=== PATIENT | female | born 1930 | race Caucasian/White ===

== ENCOUNTER 2017-05-05 09:25 | Emergency (ER) | payer MEDICARE, OTHER ==
[2017-05-05 09:38] VITALS: BP 145/70
--- NOTE | 2017-05-05 09:43 | EDM.PDOC ---
ED HPI GENERAL MEDICAL PROBLEM - General Chief Complaint: Cardiovascular Problem Stated Complaint: [facility] Time Seen by Provider: 05/05/17 09:42 - History of Present Illness INITIAL COMMENTS - FREE TEXT/NARRATIVE: 87-year-old female presents emergency room with dizziness not feeling well. This started last night sometime between 10 PM and 2 AM this morning. The patient was able to back to sleep several times but woke up in the dizziness persisted. The patient is been under a lot of stress about a month ago her they were 66 years. Her son is helping the patient she is on some medications that she gets her meds set that the [id number] sets up for her. There have not been any errors or missed or extra doses of medication that anybody can recall. The patient has had some cardiac issues in the past but it's unclear as to what they don't recall any irregular heartbeat currently the patient is on Plavix lovastatin and metoprolol tartrate. The metoprolol heart is somewhat low dose 25 mg half tablet twice daily. The patient was brought in by EMS their initial EKG had some baseline artifact that was fairly consistent with atrial fibrillation rate in the 40s. When she arrived here on the monitor sure what she was in atrial fibrillation her pulse rate was usually in the 40s occasionally would drop into the upper 30s occasionally up to 50s with to get an EKG on her rate was 56 and looks very much like atrial fibrillation careful examination does not reveal any discernible P waves however I was somewhat suspicious initially of AV gisella dysfunction or high-grade heart block. The patient has not had any chest pain or breathing difficulties with this. medications: At this time the patient is taking clopidogrel 75 mg daily. Lovastatin 20 mg at bedtime. Metoprolol tartrate 25 mg one half tablet twice daily mirtazapine 15 mg at bedtime vitamin B 1,000 g tablets daily. Vitamin D 400 international units daily calcium 600 mg 1 twice daily adult Multivite once daily. Tramadol 50 mg every 8 hours as needed for pain apparently she doesn't use this on a regular basis. The patient has been getting her healthcare in [facility] we have had no luck in contacting her clinic and we cannot contact a hospital that might have some information on her - Related Data Allergies Allergy/AdvReac Type Severity Reaction Status Date / Time No Known Allergies Allergy Verified 05/05/17 09:38 Home Meds: Home Meds Calcium Carbonate [Calcium] 600 mg PO DAILY 05/05/17 [History] Cholecalciferol (Vitamin D3) [Vitamin D] 4,000 unit PO DAILY 05/05/17 [History] Clopidogrel [Plavix] 75 mg PO DAILY 05/05/17 [History] Cyanocobalamin (Vitamin B-12) [Vitamin B-12] 1,000 mcg PO DAILY 05/05/17 [ History] Lovastatin 20 mg PO QPM 05/05/17 [History] Metoprolol Tartrate 25 mg pe PO BID 05/05/17 [History] Mirtazapine 15 mg PO QPM 05/05/17 [History] Multivitamin with Minerals [Multiple Vitamin] 1 tab PO DAILY 05/05/17 [History] traMADol [Ultram] 50 mg PO Q8HR PRN 05/05/17 [History] Past Medical History HEENT History: Reports: Other (See Below) Other HEENT History: wears glasses Cardiovascular History: Reports: Afib, High Cholesterol, Hypertension Gastrointestinal History: Reports: Chronic Constipation Genitourinary History: Reports: Other (See Below) Other Genitourinary History: 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 Denies: Fever, Chills HEENT: Reports: No Symptoms Respiratory: Reports: No Symptoms Cardiovascular: Reports: Lightheadedness. Denies: Chest Pain, Blood Pressure Problem Endocrine: Reports: No Symptoms GI/Abdominal: Reports: No Symptoms : Reports: No Symptoms Musculoskeletal: Reports: No Symptoms Skin: Reports: No Symptoms Neurological: Reports: Dizziness, Difficulty Walking, Weakness. Denies: Confusion, Headache, Numbness, Trouble Speaking Psychiatric: Reports: Other (She has been under an awful lot of stress lately) ED EXAM, GENERAL - Physical Exam Exam: See Below Exam Limited By: No Limitations General Appearance: Alert, No Apparent Distress, Other (She has a bradycardia rate in the 40s occasionally up into the 50s occasionally down into the upper 30s she appears to be in atrial fibrillation blood pressure is stable remaining vital signs normal she is alert and oriented.) Eye Exam: Bilateral Eye: EOMI, PERRL Ears: Normal External Exam, Normal Canal, Hearing Grossly Normal Nose: Normal Inspection, Normal Mucosa Throat/Mouth: Normal Inspection, Normal Oropharynx, Normal Voice Head: Atraumatic, Normocephalic Neck: Normal Inspection, Supple, Non-Tender, Full Range of Motion Respiratory/Chest: No Respiratory Distress, Lungs Clear, Normal Breath Sounds Cardiovascular: Bradycardia, Irregularly Irregular. No: Diastolic Murmur, Systolic Murmur GI/Abdominal: Normal Bowel Sounds, Soft, Non-Tender Back Exam: Normal Inspection. No: CVA Tenderness (L), CVA Tenderness (R) Extremities: Normal Inspection, No Pedal Edema Neurological: Alert, Oriented, Normal Cognition Psychiatric: Normal Affect, Normal Mood Course - Vital Signs Last Recorded V/S: Last Vital Signs Temp 36.7 C 05/05/17 09:32 Pulse 45 L 05/05/17 09:32 Resp 13 05/05/17 09:32 BP 145/70 H 05/05/17 09:32 Pulse Ox 95 05/05/17 09:32 - Orders/Labs/Meds Orders: Active Orders 24 hr Category Date Time Status EKG Documentation Completion [RC] STAT Care 05/05/17 10:03 Active Chest 1V Frontal [CR] Stat Exams 05/05/17 10:03 Taken Labs: Laboratory Tests 05/05/17 05/05/17 05/05/17 Range/Units 10:29 10:29 10:29 WBC 6.64 (3.98-10.04) K/mm3 RBC 4.42 (3.98-5.22) M/mm3 Hgb 13.4 (11.2-15.7) gm/L Hct 39.9 (34.1-44.9) % MCV 90.3 (79.4-94.8) fl MCH 30.3 (25.6-32.2) pg MCHC 33.6 (32.2-35.5) g/dl RDW Std Deviation 41.8 (36.4-46.3) fL Plt Count 238 (182-369) K/mm3 MPV 9.4 (9.4-12.3) fl Neutrophils % (Manual) 63 H (40-60) % Band Neutrophils % 0 (0-10) % Lymphocytes % (Manual) 10 L (20-40) % Atypical Lymphs % 13 % Monocytes % (Manual) 8 (2-10) % Eosinophils % (Manual) 6 H (0.7-5.8) % Basophils % (Manual) 0 L (0.1-1.2) Platelet Estimate Adequate RBC Morph Comment Normal PT 10.4 (8.0-13.0) SECONDS INR 0.96 APTT (22-36) SECONDS Sodium 143 (136-145) mEq/L Potassium 4.0 (3.5-5.1) mEq/L Chloride 106 (98-107) mEq/L Carbon Dioxide 33 H (21-32) mEq/L Anion Gap 8.0 (5-15) BUN 18 (7-18) mg/dL Creatinine 1.1 H (0.55-1.02) mg/dL Est Cr Clr Drug Dosing 34.38 mL/min Estimated GFR (MDRD) 47 (>60) mL/min BUN/Creatinine Ratio 16.4 (14-18) Glucose 108 (83-115) mg/dL Calcium 9.3 (8.5-10.1) mg/dL Magnesium 2.2 (1.8-2.4) mg/dl Total Bilirubin 0.6 (0.2-1.0) mg/dL AST 17 (15-37) U/L ALT 20 (14-59) U/L Alkaline Phosphatase 56 (46-116) U/L Troponin I < 0.017 (0.00-0.056) ng/mL Total Protein 6.6 (6.4-8.2) g/dl Albumin 3.2 L (3.4-5.0) g/dl Globulin 3.4 gm/dL Albumin/Globulin Ratio 0.9 L (1-2) TSH 3rd Generation 1.594 (0.358-3.74) uIU/mL 05/05/17 Range/Units 10:29 WBC (3.98-10.04) K/mm3 RBC (3.98-5.22) M/mm3 Hgb (11.2-15.7) gm/L Hct (34.1-44.9) % MCV (79.4-94.8) fl MCH (25.6-32.2) pg MCHC (32.2-35.5) g/dl RDW Std Deviation (36.4-46.3) fL Plt Count (182-369) K/mm3 MPV (9.4-12.3) fl Neutrophils % (Manual) (40-60) % Band Neutrophils % (0-10) % Lymphocytes % (Manual) (20-40) % Atypical Lymphs % % Monocytes % (Manual) (2-10) % Eosinophils % (Manual) (0.7-5.8) % Basophils % (Manual) (0.1-1.2) Platelet Estimate RBC Morph Comment PT (8.0-13.0) SECONDS INR APTT 26 (22-36) SECONDS Sodium (136-145) mEq/L Potassium (3.5-5.1) mEq/L Chloride (98-107) mEq/L Carbon Dioxide (21-32) mEq/L Anion Gap (5-15) BUN (7-18) mg/dL Creatinine (0.55-1.02) mg/dL Est Cr Clr Drug Dosing mL/min Estimated GFR (MDRD) (>60) mL/min BUN/Creatinine Ratio (14-18) Glucose (83-115) mg/dL Calcium (8.5-10.1) mg/dL Magnesium (1.8-2.4) mg/dl Total Bilirubin (0.2-1.0) mg/dL AST (15-37) U/L ALT (14-59) U/L Alkaline Phosphatase (46-116) U/L Troponin I (0.00-0.056) ng/mL Total Protein (6.4-8.2) g/dl Albumin (3.4-5.0) g/dl Globulin gm/dL Albumin/Globulin Ratio (1-2) TSH 3rd Generation (0.358-3.74) uIU/mL - Re-Assessments/Exams Free Text/Narrative Re-Assessment/Exam: 05/05/17 13:10 Over time the patient has remained fairly stable her pulse rate is gradually come up some. Laboratory evaluation is basically unrevealing troponins negative electrolytes are normal. EKG was done which shows atrial fibrillation rate 56 probable Q waves anteriorly low voltage mild baseline artifact. Chest x-ray shows borderline cardiomegaly no acute processes. Case discussed with our hospitalist who feels the patient would be better served to go to [place] where they have cardiology backup. Case discussed with Dr. Chavez hospitalist at [facility] in [place] who is willing to accept the patient. Departure - Departure Time of Disposition: 13:00 Disposition: DC/Tfer to Acute Hospital 02 Reason for Transfer *Q: Other Condition: Fair Clinical Impression: Atrial fibrillation, Bradycardia Referrals: PCP,Not In Area [Primary Care Provider] - Forms: ED Department Discharge - My Orders Last 24 Hours: My Active Orders 05/05/17 10:03 EKG Documentation Completion [RC] STAT Chest 1V Frontal [CR] Stat - Assessment/Plan Last 24 Hours: My Active Orders 05/05/17 10:03 EKG Documentation Completion [RC] STAT Chest 1V Frontal [CR] Stat
--- NOTE | 2017-05-06 08:58 | CR ---
Chest: Frontal view of the chest was obtained. Comparison: No previous study. Heart is slightly enlarged. Tortuous thoracic aorta is seen. Lungs are clear. Bony structures are grossly intact. Slight scoliosis is noted within the spine. Impression: 1. Incidental findings. Nothing acute is appreciated on frontal chest x-ray. Diagnostic code #2
== END 2017-05-05 13:35 ==
LOC: JD.ED 09:25 → EDBD 09:25 → JD.ED 13:35
DX: I48.91 Unspecified atrial fibrillation (principal); R00.1 Bradycardia, unspecified; I10 Essential (primary) hypertension; E78.00 Pure hypercholesterolemia, unspecified; M19.90 Unspecified osteoarthritis, unspecified site; Z79.02 Long term (current) use of antithrombotics/antiplatelets; Z79.899 Other long term (current) drug therapy
CPT/HCPCS: 36415; 71010; 71010-26; 80053; 83735; 84443; 84484; 85025; 85610; 85730; 93005; 99285; 99285-25